=== PATIENT | female | born 1985 | race African-American/Black ===

== ENCOUNTER 2017-02-11 15:39 | Emergency (ER) | payer OTHER ==
[~2017-02-11] VITALS: Ht 162.6 cm; Wt 97.5 kg
[~2017-02-11 15:39] MED LIST: ALEVE220 MG PO; DAY TIME COLD-237 ML; IBUPROFEN 600600 M1 PO; KEFLEX500 MG PO; MEDROLDOSEPACK PO; NOHOMEMEDICATIONS; NORFLEX100 MG PO; NYQUIL D COLD295 ML; PROMETHAZINE-C120 ML PO; SUDAFED30 MG; ULTRAM 50MG TAB50 MG PO; WELLBUTRIN XL150 MG PO; ZPAK PO
[2017-02-11 17:14] VITALS: BP 126/72
== END 2017-02-11 16:48 | disposition home or self-care (01) ==
LOC: ER 15:39
DX: S61.211A Laceration without foreign body of left index finger without damage to nail, initial encounter (principal); F17.210 Nicotine dependence, cigarettes, uncomplicated; W26.8XXA Contact with other sharp object(s), not elsewhere classified, initial encounter; Y93.89 Activity, other specified; Y92.89 Other specified places as the place of occurrence of the external cause; Y99.8 Other external cause status

== ENCOUNTER 2018-01-04 16:41 | Emergency (ER) | payer OTHER ==
[~2018-01-04] VITALS: Ht 162.6 cm; Wt 99.8 kg
[2018-01-04 17:00] VITALS: BP 123/69
== END 2018-01-04 17:37 | disposition home or self-care (01) ==
LOC: ER 16:41
DX: S00.512A Abrasion of oral cavity, initial encounter (principal); R59.0 Localized enlarged lymph nodes; F17.210 Nicotine dependence, cigarettes, uncomplicated; X58.XXXA Exposure to other specified factors, initial encounter; Y93.89 Activity, other specified; Y92.89 Other specified places as the place of occurrence of the external cause; Y99.8 Other external cause status

== ENCOUNTER 2018-07-25 08:12 | Emergency (ER) | payer OTHER ==
[~2018-07-25] VITALS: Ht 162.6 cm; Wt 90.7 kg
[2018-07-25] MEDS ORDERED: ULTRAM 50MG TAB50 MG PO (09:53)
[2018-07-25] MEDS ORDERED: IBUPROFEN 600600 M1 PO (09:53)
[2018-07-25 10:34] VITALS: BP 117/61
== END 2018-07-25 10:36 | disposition home or self-care (01) ==
LOC: ER 08:12
DX: M75.42 Impingement syndrome of left shoulder (principal); F17.210 Nicotine dependence, cigarettes, uncomplicated

== ENCOUNTER → 2021-01-15 | Emergency (ER) | payer OTHER ==
[~2021-01-15] VITALS: Ht 162.6 cm; Wt 90.7 kg
[2021-01-15 15:38] VITALS: BP 114/74
== END ==
LOC: ER 15:34
DX: U07.1 COVID-19 (principal); F17.210 Nicotine dependence, cigarettes, uncomplicated